=== PATIENT | female | born 2000 | race Caucasian/White ===

== ENCOUNTER 2020-07-23 14:46 | Emergency (ER) | payer MEDICAID ==
[~2020-07-23] VITALS: Ht 152.4 cm; Wt 66.4 kg
[2020-07-23 16:38] VITALS: BP 100/62; PULSE 84; TEMP 98.5
== END 2020-07-23 16:42 | disposition home or self-care (01) ==
LOC: COL.ER 14:46
DX: O26.893 Other specified pregnancy related conditions, third trimester (principal); R07.9 Chest pain, unspecified; O99.513 Diseases of the respiratory system complicating pregnancy, third trimester; R06.02 Shortness of breath; Z3A.32 32 weeks gestation of pregnancy; Z88.0 Allergy status to penicillin

== ENCOUNTER 2020-07-23 16:50 | Outpatient (CLI) | payer MEDICAID ==
[~2020-07-23] VITALS: Ht 152.4 cm; Wt 63.2 kg
--- NOTE | 2020-07-23 16:40 | NUR ---
Patient arrives via wheelchair from after being evaluated in ER for complaints of shortness of breath and chest pain. Patient reports slight headache but refuses Tylenol in ER. Patient denies contractions, ROM or vaginal bleeding and reports normal movement. Patient conversing easily and does not appear short of breath at this time. Patient changes into gown, EFM explained and placed. VSS. See physician notification. Patient updated on plan of care for FHR monitoring and discharge. Patient agrees. Assessment completed. 1706- Reactive category 1 FHR strip obtained. PAtient taken off EFM per order. Reviewed kick counts, labor precautions and PIH precautions. Patient denies questions and leaves ambulatory at 1715.
[2020-07-23 17:08] VITALS: BP 105/67; PULSE 93; TEMP 98.3
== END 2020-07-23 17:15 | disposition home or self-care (01) ==
LOC: LDRO 16:50
DX: O99.891 Other specified diseases and conditions complicating pregnancy (principal); R06.02 Shortness of breath; R07.9 Chest pain, unspecified; Z3A.32 32 weeks gestation of pregnancy

== ENCOUNTER → 2020-07-23 | Outpatient (CLI) | payer MEDICAID ==
[~2020-07-23] MED LIST: IBU600 MG PO; MONISTAT 7 VAG45 GM VG
== END ==
LOC: COL.CARD 07:02
DX: R00.2 Palpitations (principal)

== ENCOUNTER 2020-09-13 13:52 | Outpatient (CLI) | payer MEDICAID ==
[~2020-09-13] VITALS: Ht 152.4 cm; Wt 70.9 kg
--- NOTE | 2020-09-13 13:20 | NUR ---
PATIENT HERE TO LR 5 FOR OB CHECK. PATIENT HERE WITH MOTHER. PATIENT ON EFM, CHANGED INTO GOWN. ASSESMENT COMPLETE, SVE PREFORMED. QUESTIONS ANSWERED. PEDIATRICS QUESTIONS ANSWERED. AMNISWAB NEGATIVE. WHITE THICK DISCHARGE NOTED. PATIENT STATES "ARE THOSE CONTRACTIONS ONTHE MONITOR? I AM NOT FEELING THEM". PATIENT DENIES LEAKING OF FLUID DOEN LEG, THICKER DISCHARGE NOTED. NO BLEEDING NOTED
[2020-09-13 13:30] VITALS: BP 114/59; PULSE 93; TEMP 98
[2020-09-13 14:00] VITALS: BP 100/57; PULSE 88
--- NOTE | 2020-09-13 14:09 | NUR ---
PATIENT NOTES MILD CONTRACTIONS FELT. PALPATED SOFT ABDOMEN AND MILD CONTRACTIONS
[2020-09-13 14:20] VITALS: BP 100/56; PULSE 76
== END 2020-09-13 14:30 | disposition home or self-care (01) ==
LOC: LDRO 13:52 → LDR 13:54 → LDRO 14:30
DX: O41.8X30 Other specified disorders of amniotic fluid and membranes, third trimester, not applicable or unspecified (principal); Z3A.40 40 weeks gestation of pregnancy
CPT/HCPCS: OP

== ENCOUNTER 2020-09-14 15:59 | Outpatient (CLI) | payer MEDICAID ==
[~2020-09-14] VITALS: Ht 152.4 cm; Wt 70.9 kg
--- NOTE | 2020-09-14 16:20 | NUR ---
1620- G1L0, 40.1 patient arrives on unit with c/o leaking of fluids since this am. Reports normal movement, denies any LOF, or regular contractions. Ambulatory to triage room 1. Changes into clean gown. 1623- EFM explained and placed x2. Assessment completed. VS obatined. 1635- Dr. Chiang on unit and updated on patient. Orders received. 1654- FHR reactive. EFM off. Patient changes into clothes. 1700- Discharge instructions reviewed with patient and family who verbalize understanding. Ambulatory off unit with family.
[2020-09-14 17:00] VITALS: BP 102/57; PULSE 86; TEMP 98.9
== END 2020-09-14 17:00 | disposition home or self-care (01) ==
LOC: LDRO 15:59
DX: O34.63 Maternal care for abnormality of vagina, third trimester (principal); Z3A.40 40 weeks gestation of pregnancy

== ENCOUNTER 2020-09-16 13:56 | Inpatient (IN) | payer MEDICAID ==
[2020-09-16] VITALS (36 sets, daily range): BP systolic 98–140; BP diastolic 53–81; PULSE 69–117; TEMP 97.6–98.9
[~2020-09-16] VITALS: Ht 152.4 cm; Wt 71.4 kg
--- NOTE | 2020-09-16 14:05 | NUR ---
Patient ambulatory to LR3 with significant other and mother, changed into gown, FHR/TOCO monitors placed and explained. Patient states she has been here as a check the last two days thinking her water was broke but ended up being treated for yeast infection. States "I have been contractions and [place] and around 0800 this morning I had some discharched and lost mucous plug today" Plan of care discussed and questions answered. 1715: SVE-4/80/-2 and amniotest done and positive. Bloody show noted. 1720: Dr. Campos called and notified and admit orders received. Assessment completed/consents gone over and signed/ packet discussed
[2020-09-16 14:53] LABS: BASO % 0.3 % (0.0-2.0); EOS % 0.3 % (0-4.0); GRAN # 8.3 (1.4-6.5); GRAN % 76.9 % (42.2-75.2); HEMATOCRIT 37.9 % (35.0-45.0); HEMOGLOBIN 12.4 g/dl (12.0-15.0); LYMPH # 1.8 (1.2-3.4); LYMPH % 16.6 % (20.0-51.0); MEAN CELL VOLUME 90 fl (80.0-95.0); MEAN CORPUSCULAR HEMOGLOBIN 30 pg (26.0-32.0); MEAN CORPUSCULAR HGB CONC 33 g/dl (33.0-37.0); MEAN PLATELET VOLUME 10.5 fl (7.4-10.4); MONO # 0.6 (0.1-0.6); MONO % 5.4 % (1.7-9.3); PLATELET COUNT 203 K/mm3 (130-400)
[2020-09-16] MEDS ORDERED: MONISTAT 7 VAG45 GM VG (15:01)
--- NOTE | 2020-09-16 16:20 | NUR ---
Patient up on birthing ball. 1640: Patient requests epidural and Judy DINNER COOK notified. 1700: Patient sitting up for epidural and Karen Ward CNRA at bedside. 1707: Single shot given and patient tolerates well. 1710: Patient repositioned and safety instructions and plan of care discussed. Questions answered. 1730: Contractions tachysystole at this time and pitocin decreased to 4mu/hr. 1735: Dr. Campos at bedside and updated. Assess patient and FHR strip. SVE-5//-2 1745: Carlson catheter placed and patient tolerates well. 1750: Patient right lateral and left leg in stirrup. 1800: FHR decreasing to 75bpm and patient left lateral and returns to baseline. 1815: Boubacar Vela RN given bedside report.
--- NOTE | 2020-09-16 23:45 | NUR ---
Dr. Campos at bedside for SVE. Physician reports anterior lip but able to be reduced and believes patient will be able to push past it. Verbal orders to start pushing.
[2020-09-17] VITALS (18 sets, daily range): BP systolic 80–130; BP diastolic 42–92; PULSE 52–131; TEMP 98.1–98.9
--- NOTE | 2020-09-17 00:30 | NUR ---
2355 - Carlson catheter removed at this time. 250 mL yellow urine out. 0000 - Pt educated on pushing positioning and techniques, pt verbalized understanding. Pt positioned into footplates. Initial push at this time. 0010 - 3 recurrent late decelerations after pushes down to 90 bpm. Breathing through next contraction. 0030 - Pt pushing well with contractions. Occasional variable and early decelerations with return to baseline in between contractions.
--- NOTE | 2020-09-17 01:17 | NUR ---
0100 - Pt moving baby well with pushes. Occasional late decelerations down to 90 bpm after pushes with return to baseline in between. Dr. Campos at bedside to evaluate. 0105 - Dr. Campos gowned and gloved at perineum. Discussing possibly of vacuum assist due to late decelerations. Pt verbalized understanding and is agreeable to plan if needed. 0114 - Emesis episode. FHR deceleration down to 90 bpm during contraction and emesis. Dr. Campos applying vacuum successfully at this time. 0115 - Vacuum pumped up to green and gentle traction applied by Dr. Campos while patient pushes. One pop off after initial pull. Vacuum reapplied successfully during next push. Pumped to green and gentle traction applied while patient pushed. 0117 - Vacuum pumped to green and gentle traction applied by Dr. Campos while patient pushed. Delivery of viable girl at this time. Infant placed on mother's abdomen. Care of assumed to NORMA Martinez. Cord clamped x [address] Campos and cut by FOB. Cord gases and cord blood obtained by Dr. Campos. 0122 - Spontaneous delivery of intact placenta. Pitocin restarted at 333 mL/hr. Fundal massage by Dr. Campos, small amount of bleeding noted. Fundus firm and down 2 from umbilicus. Lidocaine needed for repair and provided at this time. Second degree perineal and left labial laceration repaired by Dr. Campos. Epidural off 0130 - Pericare provided. New chux beneath patient and ice pack to perineum. Pt repositioned in bed for comfort. recovery started. See physician delivery note.
--- NOTE | 2020-09-17 03:45 | NUR ---
Pt able to lift and hold each leg off of bed for 5 seconds. Pt positioned to sitting on edge of bed. Epidural catheter removed at this time. Tip smooth, blue, and intact. Pt tolerated well. Pt able to ambulate to bathroom with stand by assistance. Pt unable to void at this time. Pericare explained and provided. Clean gown on. Mesh panties and peripad applied. Pt to wheelchair and transferred to room 208 in stable condition with belongings.
--- NOTE | 2020-09-17 10:09 | NUR ---
Initial visit attempt; Patient occupied with nurses present. Radio Broadcaster left card of congratulations for the of her son and information regarding the availability of spiritual care at our [facility].
[2020-09-18 01:45] VITALS: BP 98/52; PULSE 90; TEMP 97.8
[2020-09-18] MEDS ORDERED: IBU600 MG PO (06:19)
[2020-09-18 07:48] LABS: HEMATOCRIT 29.5 % (35.0-45.0); HEMOGLOBIN 9.6 g/dl (12.0-15.0)
[2020-09-18 08:55] VITALS: BP 111/55; PULSE 96; TEMP 98.2
== END 2020-09-18 13:45 | disposition home or self-care (01) | DRG 807 ==
LOC: LDRO 13:56 → LDR 14:25 → OB 09-17 04:00
PROVIDERS: ADMIT Obstetrics & Gynecology
PROC: 10E0XZZ Delivery of Products of Conception, External Approach (ICD-10-PCS; principal; 2020-09-16)
PROC: 0KQM0ZZ Repair Perineum Muscle, Open Approach (ICD-10-PCS; 2020-09-16)
PROC: 0UQMXZZ Repair Vulva, External Approach (ICD-10-PCS; 2020-09-16)
DX: O48.0 Post-term pregnancy (principal); Z37.0 Single live birth; Z3A.40 40 weeks gestation of pregnancy; O76 Abnormality in fetal heart rate and rhythm complicating labor and delivery; O70.1 Second degree perineal laceration during delivery; O26.893 Other specified pregnancy related conditions, third trimester; Z67.31 Type AB blood, Rh negative
CPT/HCPCS: J2590; J2791; J2795; J7120